=== PATIENT | male | born 1955 ===

== ENCOUNTER → 2018-10-02 | Outpatient (CLI) | payer OTHER, MEDICARE ==
[~2018-10-02] MED LIST: CARV25TA78 PO; CYCL10TA29 PO; ESOM40CA42 PO; HYDR-653 PO; LISI-353 PO; METO-233 PO
== END ==
LOC: AMB 08:22
PROVIDERS: ATTEND Nurse Practitioner
DX: M54.5 Low back pain (principal); R41.82 Altered mental status, unspecified; M79.622 Pain in left upper arm; M79.661 Pain in right lower leg; W00.0XXA Fall on same level due to ice and snow, initial encounter
CPT/HCPCS: A0425; A0427